=== PATIENT | male | born 1960 | race Caucasian/White ===

== ENCOUNTER 2017-07-24 13:33 | Day surgery (SDC) | payer OTHER, SELFPAY ==
[2017-07-24 14:04] VITALS: BP 117/79; PULSE 70; RESP 16; TEMP 37; O2SAT 98; BMI 27.6
[2017-07-24] MEDS: Cefazolin 2 GM in 0.9% Normal Saline 100 ML IV (15:44)
--- NOTE | 2017-07-24 16:16 | PCM.OPRPT ---
Report of Operation Date of Procedure: 07/24/17 Pre-Operative Diagnosis: Left knee posterior horn medial meniscus tear. 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 Left knee arthroscopic posterior horn medial meniscectomy. 2. Left knee arthroscopic chondroplasty lateral and medial compartments Description of Surgical Findings:: See op report sales development associate: None Type of Anesthesia:: General Anesthesiologist: Sylvester Barajas Special Medications: 2 Grams Ancef Estimated Blood Loss (mL): 3 Fluids Replaced: 500 mL crystalloid Description of Procedure: On the date of the procedure, the patient's L lower extremity was marked in the preoperative area. Patient was brought back to the operating room where they were transferred to the bed. Anesthesia assumed control of the C-spine airway and administered anesthetic. All bony prominences were identified and well-padded and the L leg was placed in the arthroscopic leg nogueira. The contralateral leg was then draped over the bed and well-padded. There was padding underneath both sciatic nerves. The foot of the bed was then dropped and the L leg was prepped in a sterile fashion. The surgeon then scrubbed. Upon reentering the room, the operative leg was draped in a standard orthopedic fashion. A timeout was called, everyone agreed upon the side, the site, the procedure to be performed, patient's identity and antibiotics given. Incisions were marked out for the medial and lateral infrapatellar portals. Esmarch bandage was then used to exsanguinate the leg and tourniquet was placed at 250 mmHg. At this time, the lateral portal incision was made in a vertical fashion. The trocar was placed into the joint. The camera was then placed and the patellofemoral joint was visualized. The patella did appear to have grade 4 chondral changes on the lateral facet. The trochlea appeared to have lateral grade 4 chondral changes. We then directed our attention to the medial gutter where there was no foreign body. Then directed our attention to the medial joint compartment. There were grade 2-3 chondral changes on the medial distal femur, grade 2 chondral changes on the medial tibial plateau. The medial meniscus had complex posterior horn meniscus tear. The medial portal was then placed under direct visualization using a spinal needle an 11 blade scalpel. Once this was done a probe was placed in the joint and the meniscus was probed finding verification of the posterior horn meniscus tear. The biters and michelle were then used sequentially to debriding get rid of any free edges that could be a source of pain and catching in the meniscus tear. Once we felt medial meniscus tear was adequately debrided, we again visualized the joint and noted the meniscus tear was adequately debrided. The 90? probe to probe the medial compartment cartilage which did show areas of significant softening. Shaver was used to debride any cartilage flaps that were noted. Attention was then turned towards the notch where the anterior cruciate ligament was intact. PCL was visualized and appeared intact. Attention was then directed towards the lateral compartment where the lateral distal femur had minimal chondral changes, the lateral proximal tibia had minimal chondral changes. The lateral meniscus had no tearing. We then directed our attention to the lateral gutter, which was visualized and no free bodies were noted. Time our attention was directed back towards the patellofemoral compartment where there were fibrinous areas of cartilage damage. This was debrided using the shaver. At this time the wound was copiously irrigated out with normal saline with epinephrine. The wound was closed with 4-0 nylon and 0.5% Marcaine and epinephrine were injected for local anesthetic. Xeroform was placed over the incision. Sterile dressing was placed. Compressive dressing was placed. Tourniquet was let down. For that there was then placed up. Patient was awakened by anesthesia patient was transferred to the PACU for recovery in stable condition. Postoperative plan: Patient will be made weight-bear as tolerated. Return to activities as tolerated. He will come to the office in 2 weeks for postoperative wound check and suture removal. If he is doing well that time he can follow-up as needed. Grafts/Implants Used: none - Complications none - Admit VTE Documentation VTE Present on Admission: No VTE Mechan Device Prophylaxis: SCD's, Thigh High GARY Hose VTE Pharm Prophylaxis ordered?: Yes
[2017-07-24] MEDS: Bupiv/Epi 0.5% Mpf 30 ML Vial (16:17)
[2017-07-24 16:25] VITALS: BP 117/79; BP 118/85; PULSE 65; RESP 16; TEMP 36.4; O2SAT 95
[2017-07-24] MEDS: Ketorolac 30 MG/ML Syringe IV (16:38)
[2017-07-24 16:45] VITALS: BP 113/79; BP 117/79; PULSE 68; RESP 16; O2SAT 98
[2017-07-24 17:00] VITALS: BP 108/80; BP 117/79; PULSE 72; RESP 16; O2SAT 99
[2017-07-24 17:14] VITALS: BP 111/75; BP 117/79; PULSE 70; RESP 16; TEMP 36.3; O2SAT 98
[2017-07-24 17:55] VITALS: BP 117/79
== END 2017-07-24 18:10 | disposition home or self-care (01) ==
LOC: SDC 13:34 → AC 13:36
PROVIDERS: Family Provider Family Medicine; PCP Family Medicine; Visit Provider Specialist
PROC: (CPT 29870; principal; 2017-07-24 14:55)
DX: S83.242A Other tear of medial meniscus, current injury, left knee, initial encounter (principal); X58.XXXA Exposure to other specified factors, initial encounter; M17.12 Unilateral primary osteoarthritis, left knee; M22.42 Chondromalacia patellae, left knee; E66.3 Overweight; Z68.26 Body mass index [BMI] 26.0-26.9, adult; Z85.828 Personal history of other malignant neoplasm of skin
CPT/HCPCS: 29881; J7120; J2405

== ENCOUNTER 2017-08-30 09:30 | Outpatient (RCR) | payer OTHER, SELFPAY ==
--- NOTE | 2017-07-29 08:54 | HP.PTEVAL ---
Patient's Visit Information MICHELLE AMOS is a 57 year old M referred to Physical Therapy by WHIT Casey.TOMEKA with a diagnosis of Left Knee Scope. Date of Evaluation: 07/29/17 Physical Therapist: Sarita Dwyer - Visit Plan Frequency: 2-3x /Week Duration: 4 Weeks Plan: Knee Scope 07/24/17- focus on ROM, strength and functional mobility - Subjective Subjective: Patient reports knee scope on Saturday07/24/[address] Adames- wear and tear before surgery. Went home after surgery. Does stairs daily and is managing slowly. Knee is good as long as he is sitting still but as soon as he is moving it bothers him. Worst: 8/10 Agg: movement. Eases: rest, elevation, ice Best: 0/10. Describes pain as dull and achy most of the time with sharp when he moves wrong. The pain is along the whole knee. No radiating pain- No N/T in LE. Fully I before surgery. Wants to get mobile again- the list keeps growing. 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 Sleep: mildly disturbed- side sleeper. PMHx: basal cell cancer, right knee scope years ago Meds: none. No images since surgery. - Objective Posture: FH, RS. Gait: antalgic- no AD- decreased stance on the left LE- poor heel/toe pattern. Stairs: asc recip with 2 HR and uses UE A, desc: non recip with 2 HR and sideways pattern. HR/TR: able no pain. Balance: WS but unable to SLS. Palpation: not tender. Observation: incisions healing well no s/s of infection- still. ROM: 10-110 degrees with pain at end range. Strength: Ankle: 5/5, Knee: 4/5, Hip: 4/5 throughout Core: fair - Goals Goal 1:: Patient will be I with HEP and progression Goal Time Frame: 4-6 Weeks Goal 2:: Patient will asc/desc 8 stairs recip with 1 HR Goal Time Frame: 4-6 Weeks Goal 3:: Patient will ambulate >300 feet with a normalized gait pattern Goal Time Frame: 4-6 Weeks Goal 4:: Patient will demo 0-130 degrees of ROM in the left knee Goal Time Frame: 4-6 Weeks - Rehabilitation Potential Physical Therapy Diagnosis: Patient presents with hypomobility- he has decreased ROM, strength and muscular endurance leading to abnormal gait and decreased ADL's Rehabilitation Potential: Good - Anticipated Interventions Patient/Client Instruction: Educate patient on: Benefits of Fitness Program For the Purpose of:: To improve performance and independence with ADL's Therapeutic Exercise to Include: Strength training, Endurance training, Balance training, Agility training, Body mechanics, Postural training, Flexibilty training, Gait and locomotor training, Neuromotor development, Passive ROM, Active ROM, Dynamic Lumbar Stabilization For the Purpose of:: To improve muscle performance and motor function TENS: Yes Cryotherapy (ice pack, ice massage): Yes Thermo therapy (hot pack): Yes Ultrasound (thermal/non thermal): No Vasopneumatic device: Yes For the Purpose of:: To decrease pain, To decrease swelling/inflammation Thank you for the opportunity to evaluate your patient. For Medicare and Medicare HMO plans, please review the plan of care and approve it. It will need to be FAXED BACK to us at [phone] for Medicare purposes. Please let me know if there are questions or concerns regarding this plan of care. Physician Signature: Date:
--- NOTE | 2017-08-30 09:55 | HP.PTDCSUM_ITS ---
HP - PT D/C Summary It has been my pleasure to treat MICHELLE AMOS under orders from WHIT Casey, PA.TOMEKA for the diagnosis of Left Knee Scope for a total of 10 visit(s). Discharge Date: Please see the following information for a summary of their discharge status. - Subjective Subjective: Patient reports better in the AM 100% but by the evening swelled and sore. Sitting he is great once he is moving its a little more rough. Pain is located around the whole knee- tightness and swelling. Goes back to see Saturday. There is nothing that his knee won't let him do, getting up/down from a squat is the most challenging. - Pain Left Knee Pain Intensity (Out of 10): 0 - Overall Improvement % Improvement: 60 - Objective Objective/Function: posture: good throughout. Gait no devaition noted. ROM: 0- 125 degrees. Stairs: asc/desc 8 recip no HR. HR/TR: wnl. SLS: 30 sec without LOB. Strength: 5/5. palpation: not tender - Goals Goal 1:: Patient will be I with HEP and progression Goal Progress: Goal Met Goal 2:: Patient will asc/desc 8 stairs recip with 1 HR Goal Progress: Goal Met Goal 3:: Patient will ambulate >300 feet with a normalized gait pattern Goal Progress: Goal Met Goal 4:: Patient will demo 0-130 degrees of ROM in the left knee Goal Progress: Goal Met - Plan Plan: Discharge - D/C Information If there are questions or concerns regarding this patient's physical therapy, please feel free to call me at [phone]. Thank you for the referral of this patient. Sincerely, Sarita Dwyer
== END 2017-08-30 10:28 | disposition home or self-care (01) ==
LOC: PT 09:30
PROVIDERS: Family Provider Family Medicine; PCP Family Medicine; Visit Provider Physician Assistant Surgical
DX: S83.242D Other tear of medial meniscus, current injury, left knee, subsequent encounter (principal); M17.12 Unilateral primary osteoarthritis, left knee; M22.42 Chondromalacia patellae, left knee
CPT/HCPCS: 97016; 97110; 97161; 97530

== ENCOUNTER 2023-07-19 08:30 | Outpatient (RCR) | payer OTHER, SELFPAY ==
--- NOTE | 2023-05-03 11:20 | HP.PTEVAL_ITS ---
Patient's Visit Information Visit Information Visit Information: MICHELLE AMOS is a 62 year old M referred to Physical Therapy by WHIT Vogel with a diagnosis of R shoulder surgery 04/22/23 RCR. 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 Subjective Subjective: R shoulder pain for long time due to lots of softball. had some repair and clean up 04/22/23. Surgery went well from Dr. Kumar. Precautions are not overdoing it. In a sling away from home but not at home. Avoids over 90 degrees. Pain 1 at rest and moving it and that hurts 09/17. HEP: Moving it with other hand. no meds, no ice. Sleep is getting better in bed. On side L and slowly getting easier. 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 Off currently and until July or August. Basic ADLS getting done , pulling up pants is hard, dressing and drying is modified. he is R handed. Hobbies: Tinnkering and repair and fishing, not able currently. Pain R shoulder: Pain Intensity (Out of 10): 1 Pain Intensity Range: 1 and 4 Objective Objective: R shoulder incisions dry and healed well with only slight scar tissue Tender slightly over incisions and end range PROM only. elbow and wrist adn cervical and scap AROM WFL B. L shoulder AROM normal and painfree. R shoulder PROM flexion 135, er 48, ir at 80 abduction 50, abduction 100. strength R shoulder not tested but good sensation in B UE and able to resist without pain. Balance/Special Test Scores Quick DASH Score: 45.4525 Goals Goal 1:: ST; full PROM without pain R shoulder Goal Time Frame: 2-4 Weeks Goal 2:: ST: sleep through night without waking Goal Time Frame: 2-4 Weeks Goal 3:: LT: full aROM R shoulder Goal Time Frame: 8-12 Weeks Goal 4:: R shoulder 90% back to normal including dressing and home activity Goal Time Frame: 8-12 Weeks Goal 5:: Plan to return to work Goal Time Frame: 8-12 Weeks Goal 6:: quickdash score 14 or better Goal Time Frame: 8-12 Weeks Rehabilitation Potential Physical Therapy Diagnosis: Pain and dysfunction R shoulder and pain limiting fuction after surgery. Rehabilitation Potential: Good Anticipated Interventions Patient/Client Instruction: Educate patient on: Condition and Plan of Care For the Purpose of:: To decrease pain, To increase ROM, To improve nutrient delivery to tissue, To improve muscle performance and motor function, To increase tolerance to activity/condition/position, To improve ability of physical actions for home/community/work/leisure and To improve gait and locomotor functions Therapeutic Exercise to Include: Strength training, Postural training, Flexibilty training, Passive ROM and Active ROM For the Purpose of:: To decrease pain, To increase ROM, To improve nutrient delivery to tissue, To improve muscle performance and motor function, To increase tolerance to activity/condition/position and To improve ability of physical actions for home/community/work/leisure Manual Therapy Techniques to Include: Mobilization, Passive ROM and Soft tissue mobilization For the Purpose of:: To decrease pain, To increase ROM and To improve nutrient delivery to tissue TENS: Yes Cryotherapy (ice pack, ice massage): Yes For the Purpose of:: To decrease pain and To decrease swelling/inflammation Text: Thank you for the opportunity to evaluate your patient. For Medicare and Medicare HMO plans, please review the plan of care and approve it. It will need to be FAXED BACK to us at [phone] for Medicare purposes. For Medicare only, by signing this I certify the plan of care. Please let me know if there are questions or concerns regarding this plan of care. Physician Signature: Date:
--- NOTE | 2023-05-31 10:14 | HP.PTEVAL_ITS ---
Patient's Visit Information Visit Information Visit Information: MICHELLE AMOS is a 62 year old M referred to Physical Therapy by WHIT Vogel with a diagnosis of R shoulder surgery 04/22/23 RCR. Date of Evaluation: 05/03/23 Physical Therapist: Sean Puente, DPT, OCS, CSCS Visit Plan Frequency: 1-2x /Week Duration: 3 Months Plan: 1-2x/wee for 4-6 for progression to phase 3 and return to function. next session phase 3 band to HEP Subjective Subjective: R shoulder pain for long time due to lots of softball. had some repair and clean up 04/22/23. Surgery went well from Dr. Kumar. Precautions are not overdoing it. In a sling away from home but not at home. Avoids over 90 degrees. Pain 1 at rest and moving it and that hurts 09/17. HEP: Moving it with other hand. no meds, no ice. Sleep is getting better in bed. On side L and slowly getting easier. 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 Basic ADLS getting done , pulling up pants is hard, dressing and drying is modified. he is R handed. Hobbies: Tinnkering and repair and fishing, not able currently. Pain R shoulder: Pain Intensity (Out of 10): 0 Pain Intensity Range: 1 and 4 Objective Objective: R shoulder incisions dry and healed well with only slight scar tissue Tender slightly over incisions and end range PROM only. elbow and wrist adn cervical and scap AROM WFL B. L shoulder AROM normal and painfree. R shoulder PROM flexion 135, er 48, ir at 80 abduction 50, abduction 100. strength R shoulder not tested but good sensation in B UE and able to resist without pain. Balance/Special Test Scores Quick DASH Score: 35.0000 Goals Goal 1:: ST; full PROM without pain R shoulder Goal Time Frame: 2-4 Weeks Goal 2:: ST: sleep through night without waking Goal Time Frame: 2-4 Weeks Goal 3:: LT: full aROM R shoulder Goal Time Frame: 8-12 Weeks Goal 4:: R shoulder 90% back to normal including dressing and home activity Goal Time Frame: 8-12 Weeks Goal 5:: Plan to return to work Goal Time Frame: 8-12 Weeks Goal 6:: quickdash score 14 or better Goal Time Frame: 8-12 Weeks Rehabilitation Potential Physical Therapy Diagnosis: Pain and dysfunction R shoulder and pain limiting fuction after surgery. Rehabilitation Potential: Good Anticipated Interventions Patient/Client Instruction: Educate patient on: Condition and Plan of Care For the Purpose of:: To decrease pain, To increase ROM, To improve nutrient delivery to tissue, To improve muscle performance and motor function, To increase tolerance to activity/condition/position, To improve ability of physical actions for home/community/work/leisure and To improve gait and locomotor functions Therapeutic Exercise to Include: Strength training, Postural training, Flexibilty training, Passive ROM and Active ROM For the Purpose of:: To decrease pain, To increase ROM, To improve nutrient delivery to tissue, To improve muscle performance and motor function, To increase tolerance to activity/condition/position and To improve ability of physical actions for home/community/work/leisure Manual Therapy Techniques to Include: Mobilization, Passive ROM and Soft tissue mobilization For the Purpose of:: To decrease pain, To increase ROM and To improve nutrient delivery to tissue TENS: Yes Cryotherapy (ice pack, ice massage): Yes For the Purpose of:: To decrease pain and To decrease swelling/inflammation Text: Thank you for the opportunity to evaluate your patient. For Medicare and Medicare HMO plans, please review the plan of care and approve it. It will need to be FAXED BACK to us at [phone] for Medicare purposes. For Medicare only, by signing this I certify the plan of care. Please let me know if there are questions or concerns regarding this plan of care. Physician Signature: Date:
--- NOTE | 2023-07-12 08:54 | HP.PTREVAL_ITS ---
Re-Evaluation Intro: WHIT Vogel, It has been my pleasure to treat MICHELLE AMOS over the last 12 visits for R shoulder surgery 04/22/23 RCR. Please see the progress note below for an update on the physical therapy plan of care! Subjective Subjective: Doing well, no pain at rest. Doing exercises regularly without issues. Objective Objective/Function: Full aROM without pain today, still weak in ext rot and fle xion abduction expectedly on R side. AROM and pain better than expected adn doing very well. Will see doctor next week Plan Plan Plan: recheck after doctor visit, consider return to wrok requirements and limitations based on doctor appointment. Balance/Gait/Functional tests Balance/Special Test Scores Quick DASH Score: 35.0000 Goals Goals Goal 1:: ST; full PROM without pain R shoulder Goal Time Frame: 2-4 Weeks Goal Progress: Goal Met Goal 2:: ST: sleep through night without waking Goal Time Frame: 2-4 Weeks Goal Progress: Goal Met Goal 3:: LT: full aROM R shoulder Goal Time Frame: 8-12 Weeks Goal Progress: Goal Met Goal 4:: R shoulder 90% back to normal including dressing and home activity Goal Time Frame: 8-12 Weeks Goal 5:: Plan to return to work Goal Time Frame: 8-12 Weeks Goal 6:: quickdash score 14 or better Goal Time Frame: 8-12 Weeks Anticipated Interventions Anticipated Interventions Patient/Client Instruction: Educate patient on: Condition and Plan of Care For the Purpose of:: To decrease pain, To increase ROM, To improve nutrient delivery to tissue, To improve muscle performance and motor function, To increas e tolerance to activity/condition/position, To improve ability of physical actions for home/community/work/leisure and To improve gait and locomotor functions Therapeutic Exercise to Include: Strength training, Postural training, Flexibilty training, Passive ROM and Active ROM For the Purpose of:: To decrease pain, To increase ROM, To improve nutrient delivery to tissue, To improve muscle performance and motor function, To increase tolerance to activity/condition/position and To improve ability of physical actions for home/community/work/leisure Manual Therapy Techniques to Include: Mobilization, Passive ROM and Soft tissue mobilization For the Purpose of:: To decrease pain, To increase ROM and To improve nutrient delivery to tissue TENS: Yes Cryotherapy (ice pack, ice massage): Yes For the Purpose of:: To decrease pain and To decrease swelling/inflammation Re-Evaluation Ending Re-evaluation ending: Please do not hesitate to contact me at [phone] by phone or if you have questions or concerns regarding this new plan of care! Sincerely, Sean Puente, DPT, OCS, CSCS
--- NOTE | 2023-07-19 08:48 | HP.PTDCSUM ---
Discharge Summary D/C summary: It has been my pleasure to treat MICHELLE AMOS referred by WHIT Vogel, with the diagnosis of R shoulder surgery 04/22/23 RCR for a total of 13 visit(s). Discharge Date: 07/19/23 Please see the following information for a summary of their discharge status. Subjective Subjective: Saw doctor and will return to work on 08/05. Feeling good. No real pain. Slight soreness when uses it. Sleep is Ok. Activities at home pretty normal. HEP going well. Will continue [id number] via HEP vs continued therapy. Pain R shoulder: Pain Intensity (Out of 10): 1 Overall Improvement % Improvement: 90 Objective Objective/Function: Full aROM without pain otday. strength is 4+ in rotations and 5/5 in bi and tri and 4 in flexion abd on R vs 5 on L. Moving well and doing great. Will wean back to activities of work slowly once he returns and call if he has concerns. Goals Goal 1:: ST; full PROM without pain R shoulder Goal Progress: Goal Met Goal 2:: ST: sleep through night without waking Goal Progress: Goal Met Goal 3:: LT: full aROM R shoulder Goal Progress: Goal Met Goal 4:: R shoulder 90% back to normal including dressing and home activity Goal Progress: Goal Met Goal 5:: Plan to return to work Goal Progress: Goal Met Goal 6:: quickdash score 14 or better Goal Progress: Goal Met Plan Plan: d/c to HEP D/C Information d/c sentence: If there are questions or concerns regarding this patient's physical therapy, please feel free to call me at [phone]. Thank you for the referral of this patient. Sincerely, Sean Puente, DPT, OCS, CSCS Balance/Gait/Functional tests Balance/Special Test Scores Quick DASH Score: 4.5450 Improvement % Improvement: 90
== END 2023-07-19 19:00 | disposition home or self-care (01) ==
LOC: PT 08:30
PROVIDERS: PCP Nurse Practitioner Primary Care; Visit Provider Physician Assistant
DX: S46.011D Strain of muscle(s) and tendon(s) of the rotator cuff of right shoulder, subsequent encounter (principal); M75.41 Impingement syndrome of right shoulder
CPT/HCPCS: 97110; 97140; 97161; 97530

== ENCOUNTER 2024-04-13 08:49 | Emergency (ER) | payer OTHER, SELFPAY ==
[2024-04-13 08:51] VITALS: BP 132/80; PULSE 60; RESP 16; TEMP 36.8; O2SAT 100
[2024-04-13 08:53] VITALS: BMI 26.3
--- NOTE | 2024-04-13 09:06 | VDLE_ITS ---
Reason For Study: LLE Pain RIGHT LEFT CFV is compressible, spontaneous, phasic, GSV is normal. competent and demonstrates normal CFV is compressible, spontaneous, competent, augmentation. and demonstrates pulsatile venous flow. Procedure FV is compressible, spontaneous, competent This is a venous duplex using B-mode, color and demonstrates pulsatile venous flow. flow and spectral Doppler. POP V is compressible, spontaneous, phasic, Exam performed portable in ED. competent and demonstrates normal The exam was diagnostic. augmentation. A preliminary report was called and/or faxed T/P Trunk is compressible. to Dr. Luo. Acute deep vein thrombosis is noted in the PTV. It is dilated and NONCOMPRESSIBLE. LT PerV is compressible. LLE Dist Calf Varicosity and Perforating Vessel are dilated and NONCOMPRESSIBLE. Finding consistent with ACUTE SVT. VL/Venous Duplex US, Unilateral Interpretation Summary Acute deep vein thrombosis is noted in the left posterior tibial vein. The christine satnam of the left lower extremity deep venous system is patent and compressible. Valvular compete nce appears intact within the proximal deep venous system on the left . The left great saphenous v ein appears patent and compressible segmentally. Acute thrombosis is noted in a varicosity in the distal left lower extremity as well as a bee breeder vein. The right common femoral vein is patent and compressible. Ordering Physician: Charles Luo Referring Physician: Elsa Huang Performed By: Vaibhav Alexander, RVT
--- NOTE | 2024-04-13 09:07 | ED.VIS.LOWEX ---
HPI History of Present Illness Chief Complaint: Lower Extremity Injury Detail of Chief Complaint: Left leg pain Informant: patient Narrative Narrative: Patient presents with left leg pain that he has had off-and-on for years. He has been seen by his primary care physician and has had x-rays years ago and no etiology was found. States the pain comes on suddenly in the left lower leg and sometimes feels, like a cramp and feels like achy like when your leg falls asleep. Symptoms typically spontaneously resolve. Patient denies any injury. Started having more pain this morning and very painful with trying to stand and walk. Denies recent travel or surgery. No history of PE or DVT. He has history of gout. PFSH PFSH Home Medications ?Medication ?Instructions ?Recorded ?Last Taken ?Type apixaban 5 mg (74 tabs) tablets in See Rx Instructions .Route 04/13/24 Unknown Rx a dose pack (Eliquis DVT-PE Treat .COMPLEX #74 tabs 30D Start) Allergy/AdvReac Type Severity Reaction Status Date / Time No Known Allergies Allergy Verified 04/13/24 08:50 Social History Smoking Status: Never smoker ROS ROS ED Review of Systems ROS Unobtainable: other Constitutional Constitutional ED: Reports lethargy; Denies chills, fever(s), sweats or weight loss Eyes Eyes: Denies blurry vision, change in vision or diplopia ENT ENT ED: Denies rhinorrhea or sore throat Cardiovascular Cardiovascular: Denies chest pain, orthopnea or racing heartbeat Respiratory/Chest Respiratory/Chest: Denies cough, dyspnea, dyspnea on exertion, orthopnea or sputum Gastrointestinal Gastrointestinal: Denies abdominal pain, diarrhea, nausea or vomiting Genitourinary Genitourinary ED: Denies dysuria, hematuria or urinary frequency Musculoskeletal Musculoskeletal: Reports other Details: Left leg pain ; Denies arthralgias, back pain, myalgias or neck pain Integumentary Denies abscess, Abrasions or rash Neurologic Neurologic: Denies headache(s) or weakness Psychiatric Psychiatric: Denies anxiety, depression or suicidal thoughts Endocrine Endocrinology: Denies polydipsia, polyphagia or polyuria Hematologic/Lymphatic Hematologic/Lymphatic: Denies easy bleeding, easy bruising or lymphadenopathy Allergic/Immunologic Allergic/Immunologic ED: Denies mouth swelling, tongue swelling or urticaria EXAM Physical Exam Const Vital Signs: 04/13/24 08:51 Temperature 98.3 F Temperature Source Oral Pulse Rate 60 Respiratory Rate 16 Blood Pressure 132/80 H Blood Pressure Mean 97 Pulse Ox 100 Oxygen Delivery Method Room Air Positive well nourished and well developed General Appearance ED: well developed and NAD HEENT Reports TM's clear and moist mucous membranes normocephalic and atraumatic; Negative for trauma or tenderness Tympanic Membrane ED: Yes TM's clear Eyes PERRL and EOMs intact bilaterally General Eye ED: Negative for pale conjunctiva or scleral icterus Neck no lymphadenopathy, supple and no JVD General: Negative for tenderness Chest Wall inspection of chest normal and palpation of chest normal Chest: Negative for tenderness Resp normal respiratory effort and clear to auscultation bilaterally Effort and Inspection: Negative for respiratory distress or pain with movement Auscultation: Negative for rhonchi, wheezes or diminished lung sounds Cardio regular rate, regular rhythm, S1 normal heart sound, S2 normal heart sound and no murmurs Peripheral Pulses: pulses 2+ throughout GI normal to inspection, nondistended, normoactive bowel sounds, soft to palpation, non-tender, non-distended and no masses Back/Spine no CVA tenderness and no thoracic nor lumbar tenderness Extremity normal to inspection Extremity Narrative: Left leg-unable to reproduce pain with palpation. There is normal obvious deformity. No abscesses or cellulitic changes. No ropes or cords palpated. Normal popliteal, dorsal pedal and posterior tibial pulses. Normal range of motion at the foot and all toes. General Extremety ED: Negative for edema General Extremity: Negative for edema Neuro oriented x3, CN's II-XII intact bilaterally, no sensory deficits noted and gait normal Sensorium / Orientation: awake, alert, oriented to person, oriented to place and oriented to time Motor Exam: strength 5/5 throughout and strength abnormal Psych mental status grossly normal Skin no rashes or lesions noted and no wounds MDM MDM MDM Narrative Medical decision making narrative: Patient presents with atraumatic left leg pain. He describes some lumps to the lateral aspect of his right lower extremity couple weeks ago that then turned red and then resolved. In the differential would be DVT versus cellulitic changes at that time. Also on the differential would be bone pain due to tumors or mass or other etiology. Will obtain electrolytes to rule out electrolyte derangement for a cause of cramping. CBC with differential white count 5.9 with hemoglobin 15 and platelet count of 220. Chemistries were unremarkable. Magnesium was normal at 2.2. 2 view x-rays of the left tib-fib obtained showed no evidence of fracture or other abnormality. No lytic lesions. Patient also had a venous Doppler of the left lower extremity that was positive for posterior tibial DVT and also varicose veins. Discussed case with Dr. Winn's office and spoke with his nurse practitioner. They would like to have patient started on Eliquis and follow-up with their office. Patient in agreement with plan. He does not want thing for pain for home. Lab Data Attestation: I reviewed the patient's lab results. Labs: Laboratory Results - last 24 hr 04/13/24 09:34 WBC 5.9 RBC 4.87 Hgb 15.0 Hct 43.4 MCV 89.1 MCH 30.8 MCHC 34.6 RDW Std Deviation 39.0 RDW Coeff of Maik 12.1 Plt Count 220 MPV 8.8 Immature Gran % (Auto) 0.300 Neut % (Auto) 59.5 Lymph % (Auto) 27.7 Jessamine % (Auto) 9.9 Eos % (Auto) 2.1 Baso % (Auto) 0.5 Absolute Neuts (auto) 3.5 Absolute Lymphs (auto) 1.62 Nucleated RBC % 0 Sodium 140 Potassium 4.2 Chloride 108 H Carbon Dioxide 29.0 Anion Gap 4 L BUN 19 H Creatinine 0.96 Est GFR (MDRD) Af Amer 101 Est GFR (MDRD) Non-Af 83 BUN/Creatinine Ratio 19.7 Glucose 96 Calcium 9.5 Magnesium 2.2 Radiography Diagnostic Testing: Clinical Impression(s) from Imaging Studies Tibia/Fibula X-Ray 04/13/24 09:30 IMPRESSION: Normal x-ray examination of the tibia and fibula. Electronically Signed: Ovi Iverson MD at 10:12 EST , 2 view x-rays of the left leg showed no evidence of fracture dislocation or lytic lesion on my interpretation. Radiology in agreement. Discharge Plan Triage Chief Complaint: Lower Extremity Injury ED Provider: Charles Luo Dx/Rx/DC Orders Clinical Impression: DVT (deep venous thrombosis), Acute leg pain Instructions: DVT Tx Prescriptions: New Eliquis DVT-PE Treat 30D Start 5 mg (74 tabs) Tablets,Dose Pack See Rx Instructions .ROUTE .COMPLEX Qty: 74 0RF Rx Instructions: orally per package directions Primary Care Provider: PodlogElsa hagan NP Referrals: Sean Winn MD [Med Staff - Active Staff] - 3-5 Days PodElsa young NP, [employer] [Primary Care Provider] - Print Language: Kosovan Disposition Disposition: Home, Self Care
--- NOTE | 2024-04-13 09:30 | RAD_ITS ---
STUDY: X-RAY - LEFT TIBIA AND FIBULA REASON FOR EXAM: Male, 63 years old. Pain. No known injury. TECHNIQUE: 4 view(s) of the tibia and fibula were obtained. COMPARISON: None. FINDINGS: Normal visualized tibia. Normal visualized fibula. The soft tissue structures are unremarkable. RAD/Tibia & Fibula 2 Views IMPRESSION: Normal x-ray examination of the tibia and fibula. Electronically Signed: Ovi Iverson MD at 10:12 EST ,
[2024-04-13 09:46] LABS: Absolute Lymphocyte Count 1.62 X10^3/uL (0.83-4.51); Absolute Neutrophil Count 3.5 X10^3/uL (2.0-7.7); Basophil# 0.03 X10^3/uL; Basophil% 0.5 % (0-1); Eosinophil# 0.12 X10^3/uL; Eosinophils% 2.1 % (0-5); Hematocrit 43.4 % (40-54); Lymphocyte # 1.62 X10^3/ul (0.83-4.51); Lymphocyte % 27.7 % (19-41); Mean Corp Hgb Conc 34.6 g/dL (32-36); Mean Corpuscular Hgb 30.8 pg (27.0-32.0); Mean Corpuscular Volume 89.1 fL (80-94); Mean Platelet Vol. 8.8 fl (6.2-12.0); Monocyte# 0.58 X10^3/uL; Monocyte% 9.9 % (0-10); NRBC Flagged by Analyzer 0 % (0-5); Neutrophil # 3.48 X10^3/uL (2.7-7.7); Neutrophil % 59.5 % (47-70); Platelet Count 220 K/mm3 (150-450); RBC Distribution Width CV 12.1 % (11.6-14.6); Red Blood Count 4.87 M/mm3 (4.6-6.2); White Blood Count 5.9 K/mm3 (4.4-11.0)
[2024-04-13 09:56] LABS: Anion Gap 4 (5-15); BUN 19 mg/dL (7-18); BUN/Creat Ratio 19.7 RATIO (10-20); Calcium,Total 9.5 mg/dL (8.5-10.1); Chloride 108 mmol/L (98-107); Creatinine, Serum 0.96 mg/dL (0.70-1.30); EST Glomerular Filtration Rate 83 mL/min (>60); Est Glom Filt Rate - Afr Amer 101 mL/min (>60); Glucose 96 mg/dL (74-106); Magnesium 2.2 mg/dL (1.6-2.6); Potassium 4.2 mmol/L (3.5-5.1); Sodium Level 140 mmol/L (136-145)
[2024-04-13] MEDS: APIXABAN 5 MG TABLET 10 MG PO (10:35)
== END 2024-04-13 10:38 | disposition home or self-care (01) ==
PROVIDERS: Emergency Provider Emergency Medicine; PCP Nurse Practitioner Primary Care; Visit Provider Emergency Medicine
DX: I82.442 Acute embolism and thrombosis of left tibial vein (principal)
CPT/HCPCS: 73590; 80048; 83735; 85025; 93971; 99282

== ENCOUNTER → 2024-08-03 | Outpatient (CLI) | payer OTHER, SELFPAY ==
--- NOTE | 2024-08-03 09:42 | VDLE_ITS ---
Reason For Study Reason For Study: Left leg pain Procedure LEFT This is a venous duplex using B-mode, color flow and CFV is compressible, spontaneous, phasic, competent, spectral Doppler. and demonstrates normal augmentation. Exam performed in department. FV is compressible, spontaneous, phasic, competent Patient was scanned in reverse Trendelenburg position and demonstrates normal augmentation. during reflux assessment. POP V is compressible, phasic, and INCOMPETENT for greater than 1.0 second. T/P Trunk is compressible. PTV is compressible. LT PerV is compressible. Perforating vein, 9 cm above medial malleolus, is partially compressible. Compared to 04/13/2024. SFJ is competent and measures 0.73 cm. GSV proximal thigh measures 0.34 x 0.37 cm. GSV at knee measures 0.39 x 0.40 cm. GSV INCOMPETENT throughout for greater than 0.5 seconds. ASV mid calf is INCOMPETENT for greater than 0.5 seconds and measures 0.26 x 0.28 cm. SSV mid calf is competent and measures 0.32 x 0.34 cm. VL/Venous Duplex US, Unilateral Interpretation Summary Deep veins of the left lower extremity are patent and compressible segmentally. There is no evidence of left lower extremity deep vein thrombosis. The left great saphenous vein appears patent an d compressible segmentally. Positive for reflux in the left popliteal vein, great saphenous vein throughout , accessory saphenous vein in calf. Resolution of deep vein thrombosis. Partial resolution of superficial vein thro mbosis. Ordering Physician: Ruma Giordano Referring Physician: Elsa Jacobs Performed By: Carmita Brandt RVT
== END | disposition home or self-care (01) ==
PROVIDERS: PCP Nurse Practitioner Primary Care; Referring Provider Physician Assistant; Visit Provider Physician Assistant
DX: I82.402 Acute embolism and thrombosis of unspecified deep veins of left lower extremity (principal); I82.812 Embolism and thrombosis of superficial veins of left lower extremity
CPT/HCPCS: 93971

== ENCOUNTER 2025-01-09 16:11 | Emergency (ER) | payer OTHER, SELFPAY ==
[2025-01-09 16:12] VITALS: BP 129/82; PULSE 89; RESP 16; TEMP 36.3; O2SAT 100; BMI 27.2
--- NOTE | 2025-01-09 16:21 | EX.ED.GENINJ ---
HPI History of Present Illness Chief Complaint: Laceration Narrative Narrative: 64-year-old male who denies significant past medical history, [id number], presents with laceration to the finger pad of his right fifth digit. He states that he was splitting wood, got carried away, and hit the sharp end of the sumit. He sustained a small laceration, approximately 1 cm paris to the finger pad of his right fifth digit. He denies other injury. States he does not take blood thinners and that his tetanus immunization is current, within the last 2 years when he went to his primary care provider for routine follow-up. He was unsure if his finger needed a stitch or not so he presents to the emergency department. He denies any bony tenderness or any other injury. No crush injury. [facility] Medical History Hx of skin cancer, basal cell (~2018) Home Medications ?Medication ?Instructions ?Recorded ?Last Taken ?Type apixaban 5 mg tablet (Eliquis) 5 mg PO BID #60 tabs 04/29/24 Unknown Rx multivitamin (Daily Multi-Vitamin 1 tab PO QAM 05/22/24 Unknown History tablet) Allergy/AdvReac Type Severity Reaction Status Date / Time No Known Allergies Allergy Verified 01/09/25 16:12 Family History Other Cancer Hypertension Surgical History History of knee replacement (~2008) Hx of shoulder surgery (~2022) Social History Smoking Status: Never smoker ROS ROS ED ROS Narrative Review of systems positive for 1 cm laceration to right finger pad, in the middle. Tetanus immunization current. No bony tenderness. No crush injury. Denies other injury. EXAM Physical Exam Narrative Exam Narrative: GCS 15. ABCs intact. Cardiovascular examination regular rate and rhythm. Lungs clear to auscultation bilaterally. Abdomen soft nontender with normoactive bowel sounds. Neurological examination able to transfer and ambulate in the ED, nonfocal, nonlateralizing. Inspection of the finger pad on the fifth digit of the right hand does show an approximate 1 cm or less laceration to the finger pad area without active bleeding. Const Vital Signs: 01/09/25 16:12 Temperature 97.4 F L Temperature Source Temporal Pulse Rate 89 Respiratory Rate 16 Blood Pressure 129/82 H Blood Pressure Mean 97 Pulse Ox 100 Oxygen Delivery Method Room Air PROC Procedures Lacerations Right fifth finger pad laceration: Length: 0.39 in Depth: Skin Shape: Flap Prep: Shure-Clens Laceration repair: Irrigated (Soaked), Lidocaine and Local Number of Sutures/[place]: 3 Suture Information: Ethilon, Simple and 4-0 Comment: Patient tolerated procedure well MDM MDM MDM Narrative Medical decision making narrative: Differential diagnosis includes simple laceration versus open tuft fracture versus finger contusion. I lengthy discussion with the patient regarding x-rays, and he has no bony tenderness states he hit the sharp end of the sumit. Was felt more this is a simple laceration. His tetanus immunization is current. Additionally, I just tai with him leaving the wound open to heal by secondary intent versus suture closure. His finger was soaked in saline and Shur-Clens and wound cleansed. Upon repeat examination, his wound will be reevaluated to see if it requires a few sutures. After soaking, although it is a flap-like laceration with thin skin at the distal end of the finger, through shared decision making, sutures will be inserted. See procedure note for details. Patient declined any analgesia here in the emergency department. At this point in time, I feel he can be discharged to follow-up with his primary care provider and have his sutures removed in 10 days by his primary care provider. He was told to look for signs of infection. He will take over the counter medications as needed for analgesia. Return instructions to the emergency department were reviewed. Disposition is discharged home in stable condition. History & Record Review Discussion w/independent historian: Patient Discharge Plan Triage Chief Complaint: Laceration ED Provider: Isac Solano Dx/Rx/DC Orders Clinical Impression: Finger laceration, Injury of finger Instructions: ED Laceration, Hand: All Closures Prescriptions: No Action multivitamin [Daily Multi-Vitamin] Tablet 1 tab PO QAM Eliquis 5 mg tablet 5 mg PO BID Qty: 60 2RF Primary Care Provider: Elsa Jacobs NP Referrals: Elsa Jacobs NP, [employer] [Primary Care Provider] - 10 Day for suture removal Activity Restrictions/Additional Instructions: Tylenol or ibuprofen as needed for pain. Return with drainage of pus from wound, increased erythema, fever, red streak up your arm, new or worsening symptoms. Have the sutures removed in 10 days. There were 3 simple interrupted sutures inserted. Print Language: Korean Disposition Disposition: Home, Self Care
[2025-01-09 17:12] VITALS: BP 134/76; PULSE 78; RESP 16; TEMP 37.1; O2SAT 99
[2025-01-09] MEDS: Lidocaine 1% (20 ml mdv) 20 ML Vial INFILT (17:25)
== END 2025-01-09 17:46 | disposition home or self-care (01) ==
PROVIDERS: Emergency Provider Emergency Medicine; PCP Nurse Practitioner Primary Care; Visit Provider Emergency Medicine
DX: S61.216A Laceration without foreign body of right little finger without damage to nail, initial encounter (principal); W26.8XXA Contact with other sharp object(s), not elsewhere classified, initial encounter; Y93.89 Activity, other specified; Z85.828 Personal history of other malignant neoplasm of skin; Z96.659 Presence of unspecified artificial knee joint
CPT/HCPCS: 12001; 99283